=== PATIENT | male | born 1990 | race Caucasian/White ===

== ENCOUNTER 2018-01-05 22:18 | Emergency (ER) | payer OTHER, SELFPAY ==
[2018-01-05 22:20] VITALS: BP 141/76; PULSE 97; RESP 16; TEMP 36.9; O2SAT 95; BMI 33.6
--- NOTE | 2018-01-05 22:22 | RAD_ITS ---
STUDY: X-RAY - LEFT HAND, ATTENTION THIRD FINGER REASON FOR EXAM: Male, 27 years old. Trauma TECHNIQUE: 3 view(s) of the finger were obtained. COMPARISON: None. FINDINGS: Normal metacarpal head. Normal metacarpophalangeal joint. Normal proximal phalanx. Normal middle phalanx. There is a linear fracture of the distal phalangeal tuft without significant separation of fracture fragments Normal proximal interphalangeal joint. Normal distal interphalangeal joint. RAD/Finger(s) Min 2 Views IMPRESSION: Acute fracture of the distal phalangeal tuft of the third finger Electronically Signed: Robret Watts MD at 22:48 EDT , Service support ,
--- NOTE | 2018-01-06 00:16 | ED.RN ---
PT [facility] INTACTS.
--- NOTE | 2018-01-06 00:28 | ED.DCSUM_ITS ---
- ER Visit Summary Date of Service: 01/06/18 Chief Complaint: Left middle finger pain History of Present Illness: The patient is a 27 M with no primary care physician. Reports that he got his left middle finger caught between a clamp and a piece of metal and it was crushed. He has pain is 6 out of 10 when he bumps it and 2 out of 10 at rest. He describes the pain as dull. He denies any other complaints. Physical Examination: Vitals: Stable. Afebrile. Left middle finger: Approximately 20% subungual hematoma with bleeding around the nail. There is no laceration. There is contusion and mild soft tissue swelling. Is moderately tender to palpation. General: Well-nourished and well-developed. Head: Normocephalic atraumatic. Neck: Supple, no lymphadenopathy. No JVD. Nontender. Cardiovascular: Regular rate and rhythm. No murmurs. Respiratory: No respiratory distress. Clear to auscultation bilaterally. Abdominal: Soft, nontender, nondistended, normal bowel sounds. No guarding, rebound, or peritoneal signs. Back: Nontender. Extremities: Nontender, no edema. Skin: Normal color, no rash. Neurologic: Alert and oriented ?3. Cranial nerves II through XII are intact. Normal strength and sensation. Psych: Normal affect. Test Results: X-ray of his left middle finger shows a tuft fracture. Emergency Department Course and Treatment: I suspect the patient has a nailbed laceration on it however, this is protected by the nail at this time. He will be placed on Keflex and given a first dose in the emergency department. Treatment Plan: Patient will be discharged with Keflex. Instructed follow-up [facility] in 1 week for another exam. Return to the emergency department for any worsening symptoms. Disposition: To home in improved and stable condition. Impression: 1. Left middle finger tuft fracture. This note was generated with [employer] dictation software. It may contain incorrect words, spelling, and punctuation that were not noted in review of the chart prior to signing ED Disposition - Plan for ED Patient: Chief Complaint: Laceration Instructions: ED Fx Finger Closed Prescriptions: Cephalexin [Keflex] 500 mg PO Q6 #28 capsule Referrals: [facility]GROUP OF PHYSICIANS] - 1 Week
[2018-01-06] MEDS: Cephalexin 500 MG Capsule PO (01:04)
--- NOTE | 2018-01-06 01:13 | ED.RN ---
PT REFUSED D.C VITALS.
== END 2018-01-06 01:14 | disposition home or self-care (01) ==
LOC: ED 01-06 00:43
PROVIDERS: Emergency Provider Emergency Medicine
DX: S62.633A Displaced fracture of distal phalanx of left middle finger, initial encounter for closed fracture (principal); W23.1XXA Caught, crushed, jammed, or pinched between stationary objects, initial encounter; Y93.9 Activity, unspecified; Y92.9 Unspecified place or not applicable; Y99.0 Civilian activity done for income or pay; Z72.0 Tobacco use
CPT/HCPCS: 73140; 99283